=== PATIENT | male | born 1935 ===

== ENCOUNTER 2017-10-16 10:41 | Emergency (ER) | payer MEDICARE ==
[2017-10-16 10:41] VITALS: BMI 22.3
[2017-10-16] MEDS ORDERED: Amoxicillin-Clav 875-125 mg Tab PO STA (11:42)
[2017-10-16] MEDS ORDERED: Tdap Vaccine 0.5 ml Vial (10-64 yrs) IM ONE ×2 (11:42→11:49)
[2017-10-16] MEDS ORDERED: Amoxicillin-Clav 875-125 mg Tab PO ONE (11:48)
--- NOTE | 2017-10-16 12:17 | C.PDOC ---
History Of Present Illness Pt was trying to remove a mouse from a mouse trap when the mouse bit him on the finger. Time Seen by Provider: 10/16/17 11:26 Chief Complaint (Nursing): Bite History Per: Patient Onset/Duration Of Symptoms: Days (1) Current Symptoms Are (Timing): Still Present Location Of Injury: Left: Hand (index finger) Quality Of Symptoms: Painful. denies: Draining Severity: Mild Additional History Per: Prior Records - Animal Bite Description Of The Animal: Other (Mouse) Past Medical History Reviewed: Historical Data, Nursing Documentation, Vital Signs Vital Signs: Last Vital Signs Temp 98.0 F 10/16/17 10:58 Pulse 71 10/16/17 10:58 Resp 18 10/16/17 10:58 BP 162/94 H 10/16/17 10:58 Pulse Ox 98 10/16/17 10:58 - Medical History PMH: Fractures (lumbar and dorsal vertebrae), HTN, Hypercholesterolemia - [facility] Procedures CLOSURE SKIN & SUBCUTANEOUS NEC (02/24/13) PERCUTANEOUS VERTEBRAL AUGMENTATION (04/30/14) TETANUS TOXOID ADMINIST (02/24/13) THORACIC SPINE X-RAY NEC (04/30/14) Family History: States: Unknown Family Hx - Social History Hx Alcohol Use: No Hx Substance Use: No - Immunization History Hx Tetanus Toxoid Vaccination: No Review Of Systems Except As Marked, All Systems Reviewed And Found Negative. Constitutional: Negative for: Fever, Chills, Weakness Gastrointestinal: Negative for: Nausea, Vomiting Musculoskeletal: Negative for: Neck Pain, Arm Pain Skin: Negative for: Rash Neurological: Negative for: Weakness, Numbness, Seizures, Altered Mental Status , Headache Physical Exam - Physical Exam Appears: Non-toxic Skin: Warm, Dry Head: Atraumatic, Normacephalic Eye(s): bilateral: Normal Inspection, PERRL, EOMI Neck: Normal ROM, Supple Extremity: Normal ROM, Other (small bite wound on distal phalanx of left index finger with mild swelling/tenderness.) Pulses: Left Radial: Normal Neurological/Psych: Oriented x3, Normal Motor, Normal Sensation ED Course And Treatment O2 Sat by Pulse Oximetry: 98 Pulse Ox Interpretation: Normal - Other Rad Left index finger x-rays X-Ray: Interpreted by Me, Viewed By Me Interpretation: No FB visualized. Reassessment Condition: Improved Medical Decision Making Medical Decision Making: CDC does not recommend Rabies PEP for rodent bites. Disposition Counseled Patient/Family Regarding: Studies Performed, Diagnosis, Need For Followup, Rx Given - Disposition Referrals: Anna Costello MD [Medical Doctor] - Disposition: HOME/ ROUTINE Disposition Time: 12:19 Condition: STABLE Additional Instructions: Follow up with your doctor in 2-3 days for a wound check. Return to the ER if you develop fever, redness, swelling, pus drainage, worsening of symptoms or if you have any other concerns. Prescriptions: Amoxicillin/Clavulanate [Augmentin 875 MG-125 MG] 1 tab PO BID #14 tab Instructions: Animal Bites (DC) - Clinical Impression Clinical Impression: Bitten by mouse
--- NOTE | 2017-10-16 12:25 | RAD ---
PROCEDURE: Left Index finger radiographs. HISTORY: bitten by mouse. r/o FB (tooth). COMPARISON: None. TECHNIQUE: AP radiograph of the left hand, as well as spot oblique and lateral images of index finger were obtained. FINDINGS: LEFT INDEX FINGER: No acute fracture. JOINTS: Diffuse degenerative changes. SOFT TISSUES: Normal. OTHER FINDINGS: None. IMPRESSION: No demonstrated fracture, dislocation or radiopaque foreign body.
[2017-10-16 12:29] VITALS: BP 150/72; PULSE 79; RESP 16; TEMP 98.2; O2SAT 99
== END 2017-10-16 12:27 | disposition home or self-care (01) ==
LOC: C.ER 10:41
DX: S61.251A Open bite of left index finger without damage to nail, initial encounter (principal); W53.01XA Bitten by mouse, initial encounter; Y92.009 Unspecified place in unspecified non-institutional (private) residence as the place of occurrence of the external cause; Z23 Encounter for immunization